=== PATIENT | female | born 1990 ===

== ENCOUNTER 2017-12-02 21:01 | Emergency (ER) | payer SELFPAY ==
[2017-12-02 21:12] VITALS: BP 109/75; PULSE 100; RESP 16; TEMP 98.1; O2SAT 99
== END 2017-12-02 21:52 | disposition left against medical advice (07) ==
LOC: H.ER 21:01
DX: Z02.89 Encounter for other administrative examinations (principal)

== ENCOUNTER 2017-12-03 14:04 | Emergency (ER) | payer MEDICAID ==
[2017-12-03 14:19] VITALS: BP 113/73; PULSE 90; RESP 18; TEMP 98.5; O2SAT 100
--- NOTE | 2017-12-03 14:55 | ED PDOC ---
HPI: Female Pain Time Seen by Provider: 12/03/17 14:23 Chief Complaint (Nursing): Abnormal Skin Integrity Chief Complaint (Provider): Abscess History Per: Patient History/Exam Limitations: no limitations Onset/Duration Of Symptoms: Days (x4-5) Current Symptoms Are (Timing): Still Present Associated Symptoms: denies: Fever, Chills, Nausea, Vomiting, Diarrhea Additional Complaint(s): Leanna Donovan is a 26 year old female, with no significant past medical history, who presents to the emergency department for evaluation of irritation of her vaginal area for the last x4-5 days. She reports pain when sitting down and a questionable dysuria. She states pain is unrelieved by Motrin and Tylenol at home, last dose was last night. Patient has a history of similar skin irritation however she states in the past it resolved spontaneously without evaluation/treatment. She denies any fever, chills, abdominal pain, nausea, vomit, diarrhea, vaginal bleeding or discharge. No further medical complaints. LMP: couldn't recall. PMD: Doesn't recall. PLANT CHIEF: does not have one Abnormal Vaginal Bleeding: No Past Medical History Reviewed: Historical Data, Nursing Documentation, Vital Signs Vital Signs: Last Vital Signs Temp 98.5 F 12/03/17 14:17 Pulse 90 12/03/17 14:17 Resp 18 12/03/17 14:17 BP 113/73 12/03/17 14:17 Pulse Ox 100 12/03/17 14:17 - Medical History PMH: No Chronic Diseases - Surgical History Surgical History: Cholecystectomy - Family History Family History: States: Unknown Family Hx - Immunization History Hx Tetanus Toxoid Vaccination: Yes (UTD) - Home Medications Home Medications: Ambulatory Orders Medication Instructions Recorded Acetaminophen [Acetaminophen 8 650 mg PO Q8 PRN #21 tablet.er 12/03/17 Hour] Amoxicillin/Clavulanate [Augmentin 1 tab PO BID #14 tab 12/03/17 875 MG-125 MG] RX: Naproxen 500 mg PO BID PRN #20 tab 12/03/17 - Allergies Allergies/Adverse Reactions: Allergies Allergy/AdvReac Type Severity Reaction Status Date / Time No Known Allergies Allergy Verified 12/03/17 14:24 Review of Systems ROS Statement: Except As Marked, All Systems Reviewed And Found Negative Constitutional: Negative for: Fever, Chills Gastrointestinal: Negative for: Nausea, Vomiting, Abdominal Pain, Diarrhea Genitourinary Female: Positive for: Dysuria (questionable). Negative for: Vaginal Discharge, Vaginal Bleeding Skin: Positive for: Other (abscess) Physical Exam - Reviewed Nursing Documentation Reviewed: Yes Vital Signs Reviewed: Yes - Physical Exam Comments: GENERAL APPEARANCE: Patient is awake, alert and oriented x3; in no acute distress. Resting comfortably. SKIN: Warm, dry; (-) cyanosis. NECK: Supple CHEST AND RESPIRATORY: (-) wheezing; (-) rales, (-) rhonchi; breath sounds equal bilaterally. Respirations even and nonlabored. HEART AND CARDIOVASCULAR: (-) irregularity ABDOMEN AND GI: Soft, (-) tenderness. PELVIC: Normal external genitalia; (-) vesicles, (-) Rashes, (-) Lesions (-) ulcers. (-) vaginal discharge; (+) [id number] fluctuant, tender abscess inferior to left labia, with surrounding cellulitis. A female RN java sql developer (Mary) was present with me during the entire examination. EXTREMITIES: (-) deformity. - Laboratory Results Urine POC: Negative - ECG O2 Sat by Pulse Oximetry: 100 (RA) Pulse Ox Interpretation: Normal Medical Decision Making Medical Decision Making: Time: 14:20 Initial Impression: Abscess Initial Plan: --Urine --Chlamydia/GC RNA, TMA --Urine culture --Urinalysis --Reevaluation Upreg: negative 15:15 -Consult placed to surgery. Spoke with certified surgical assistant who is agreeable to ER evaluation. 1530 residential sales rep, Dr Fang at bedside. 1625 I&D performed by certified surgical assistant. See consult note. Recommends treatment with 875mg PO Augmentin. Augmentin ordered. Educated on wound care. U/A reviewed: (+) trace leukocytes. Culture pending. 1700 On re-evaluation, patient reports improvement of symptoms. On exam, patient remains AAOx3, in no acute distress. Lungs clear to auscultation, cardiac RRR, abdomen soft, non-tender, repeat neuro exam shows no focal findings. Vitals stable. Lab/Diagnostic results d/w the patient in great detail. Diagnosis of abscess d/w the patient. Based on history, exam and diagnostic results, plan will be for outpatient follow up. Patient instructed to follow-up with pmd / referral provided / the clinic in 1- 2 days without fail. Advised to take medication as prescribed. Return to the emergency room at any time for any new or worsening symptoms. Patient states she fully agrees with and understands discharge instructions. States that she agrees with the plan and disposition. Verbalized and repeated discharge instructions and plan. I have given the patient opportunity to ask any additional questions. Scribe Attestation: Documented by Brain Winter, acting as a scribe for Aminah Arora PA-C Provider Scribe Attestation: All medical record entries made by the Scribe were at my direction and personally dictated by me. I have reviewed the chart and agree that the record accurately reflects my personal performance of the history, physical exam, medical decision making, and the department course for this patient. I have also personally directed, reviewed, and agree with the discharge instructions and disposition. Disposition - Clinical Impression Clinical Impression: Abscess - Patient ED Disposition Is Patient to be Admitted: No Counseled Patient/Family Regarding: Studies Performed, Diagnosis, Need For Followup, Rx Given - Disposition Referrals: Mackenzie Forte MD [Staff Provider] - Disposition: Routine/Home Disposition Time: 17:05 Condition: STABLE Additional Instructions: TAKE ANTIBIOTICS DIRECTED UNTIL COMPLETE. USE WARM COMPRESSES AND SOAKS. The emergency medical care you received today was directed at your acute symptoms. If you were prescribed any medication, please fill it and take as directed. It may take several days for your symptoms to resolve. Return to the Emergency Department if your symptoms worsen, do not improve, or if you have any other problems. Please contact your doctor in 2 days for re-evaluation and follow up / or call one of the physicians/clinics you have been referred to that are listed on the Patient Visit Information form that is included in your discharge packet. Bring any paperwork you were given at discharge with you along with any medications you are taking to your follow up visit. Our treatment cannot replace ongoing medical care by a primary care provider (PCP) outside of the emergency department. Prescriptions: Acetaminophen [Acetaminophen 8 Hour] 650 mg PO Q8 PRN #21 tablet.er PRN Reason: Pain, Moderate (4-7) Amoxicillin/Clavulanate [Augmentin 875 MG-125 MG] 1 tab PO BID #14 tab RX: Naproxen 500 mg PO BID PRN #20 tab PRN Reason: Pain, Moderate (4-7) Instructions: Boil, Skin Abscess, Abscess Incision and Drainage, Wound Care Forms: [facility] ([place]) Print Language: NAURUAN - POA Present On Arrival: None Results - Lab Results Lab Results: 12/03/17 14:55 Urine Color Yellow Urine Clarity Slighty-cloudy Urine pH 5.0 Ur Specific [place] 1.020 Urine Protein Negative Urine Glucose (UA) Neg Urine Ketones Trace Urine Blood Small Urine Nitrate Negative Urine Bilirubin Negative Urine Urobilinogen 0.2-1.0 Ur Leukocyte Esterase Trace Urine RBC (Auto) 2 Urine Microscopic WBC 10 H Ur Squamous Epith Cells 2 Urine Bacteria Rare
[2017-12-03 15:25] LABS: SQUAMOUS EPITHIAL 2 /hpf (0-5); URINE BACTERIA RARE (<OCC); URINE BILIRUBIN NEGATIVE (NEGATIVE); URINE BLOOD SMALL (NEGATIVE); URINE CLARITY SLIGHTY-CLOUDY (Clear); URINE COLOR YELLOW (YELLOW); URINE GLUCOSE (UA) NEG (Normal); URINE LEUKOCYTE ESTERASE TRACE Leu/uL (Negative); URINE PROTEIN NEGATIVE (NEGATIVE); URINE UROBILINOGEN 0.2-1.0 mg/dL (0.2-1.0)
[2017-12-03] MEDS ORDERED: Lidocaine 1% Inj (20ml) IJ ONE (15:51)
[2017-12-03] MEDS ORDERED: Lidocaine PF 2% (5 ml) Inj (For Cardiac Arrhy) IJ ONE (15:52)
[2017-12-03] MEDS ORDERED: Lidocaine PF 2% (5 ml) Inj (For Cardiac Arrhy) ONE (16:07)
[2017-12-03] MEDS ORDERED: Amoxicillin-Clav 875-125 mg Tab PO STA (16:23)
--- NOTE | 2017-12-03 16:41 | CP.PCM.CON ---
History of Present Illness - History of Present Illness History of Present Illness: Surgery: Dr. Forte CC: L gluteal abscess HPI: 26F w. no pmh presents w. L side gluteal abscess x 4 days. Pain is constant, aggravated by activity or when pressure is applied. She has had similar issues in the past, but they resolved on her own. She denies any drainage. She's tried warm compresses at home with out relief. She does report intermittent fevers and chills. PMH: none PSH: cholecystectomy Meds: none NKDA Social: +ETOH/tobaco, no drugs Fhx: non-contributory Review of Systems - Review of Systems All systems: reviewed and no additional remarkable complaints except (HPI) Past Patient History - Past Social History Smoking Status: Never Smoked - PSYCHIATRIC Hx Substance Use: No - SURGICAL HISTORY Hx Cholecystectomy: Yes - ANESTHESIA Hx Anesthesia: Yes Meds Allergies/Adverse Reactions: Allergies Allergy/AdvReac Type Severity Reaction Status Date / Time No Known Allergies Allergy Verified 12/03/17 14:24 Physical Exam - Constitutional Appears: Non-toxic, No Acute Distress - Head Exam Head Exam: ATRAUMATIC, NORMOCEPHALIC - Eye Exam Eye Exam: EOMI - ENT Exam ENT Exam: Mucous Membranes Moist - Respiratory Exam Respiratory Exam: NORMAL BREATHING PATTERN. absent: Accessory Muscle Use, Respiratory Distress - GI/Abdominal Exam GI & Abdominal Exam: Soft. absent: Distended, Tenderness - Rectal Exam Additional comments: L gluteal abscess, ~2x2cm, fluctuant, tender, warm to touch, minimal erythema, no drainage - Extremities Exam Extremities exam: Negative for: calf tenderness, pedal edema - Neurological Exam Neurological exam: Alert, Oriented x3 - Psychiatric Exam Psychiatric exam: Normal Affect, Normal Mood Results - Vital Signs Recent Vital Signs: Last Vital Signs Temp 98.5 F 12/03/17 14:17 Pulse 90 12/03/17 14:17 Resp 18 12/03/17 14:17 BP 113/73 12/03/17 14:17 Pulse Ox 100 12/03/17 16:24 - Labs Labs: Laboratory Results - last 24 hr 12/03/17 14:55 Urine Color Yellow Urine Clarity Slighty-cloudy Urine pH 5.0 Ur Specific [place] 1.020 Urine Protein Negative Urine Glucose (UA) Neg Urine Ketones Trace Urine Blood Small Urine Nitrate Negative Urine Bilirubin Negative Urine Urobilinogen 0.2-1.0 Ur Leukocyte Esterase Trace Urine RBC (Auto) 2 Urine Microscopic WBC 10 H Ur Squamous Epith Cells 2 Urine Bacteria Rare Assessment & Plan - Assessment and Plan (Free Text) Assessment: 26F w. L gluteal abscess -I&D at bedside -consent in chart, risks benefits d/w pt -MAYE Arora was present for physical exam and procedure -Pt clear for d/c from surgical standpoint -Augmentin for 1 week -Sitz baths TID -Tylenol/advil for pain -F/U w. Dr. Forte in 1-2 weeks -Return to ED if symptoms worsen -d/w attending Zemaitis PGY4 Procedures - Incision and Drainage Site: L buttock Blade Size: 11 Progress: Pre-op Dx: Abscess L buttock Procedure: I&D L buttock Post-op Dx: same Indication: 26F w. abscess to L buttock x 4 days that has failed to improve. I&D was elected Description: Consent was obtained. L buttock was prepped with alcohol. 10cc of 2% lidocaine was used to infiltrate the area. ~2cm incision was made with 11 blade scalpel with immediate return of pus. Cultures were taken. Loculations wer e blunty disrupted. ~10cc pus drained. Abscess irrigated with 30cc saline. 4x4 applied. Pt tolerated procedure without complication.
[2017-12-03] MEDS ORDERED: Amoxicillin-Clav 875-125 mg Tab PO ONE (16:56)
== END 2017-12-03 17:24 | disposition home or self-care (01) ==
LOC: H.ER 14:04
DX: L02.31 Cutaneous abscess of buttock (principal)